=== PATIENT | male | born 1980 | race Caucasian/White ===

== ENCOUNTER 2021-09-12 12:47 | Inpatient (IN) ==
[2021-09-12] MEDS ORDERED: SODIUM CHLORIDE 0.9% 1,000 ML IV STA (13:19)
[2021-09-12 14:07] LABS: Basophils % 0.9 % (0.0-0.8); Eosinophils % 0.3 % (0.00-10.9); Hematocrit 29.4 VOL% (42.0-52.0); Hemoglobin 10.8 GM/DL (14.0-18.0); Immature Granulocytes % 1.2 %; Immature Granulocytes Absolute 0.04 #; Lymphocytes # 0.2 10*3/uL (1.4-4.0); Lymphocytes % 6.2 % (21.2-54.2); Mean Corpuscular HGB Conc 36.7 GM/DL (32-36); Mean Corpuscular Volume 91.6 FL (87-102); Monocytes # 0.5 10*3/uL (0.11-0.8); Monocytes % 14.9 % (1.7-12.7); Neutrophils % 76.5 % (38.7-73.9); Platelet Count 138 T/CUMM (130-400); Red Blood Count 3.21 MC/CUMM (3.8-5.5); Red Cell Distribution Width 16.4 % (9.3-17.3); White Blood Count 3.2 T/CUMM (4-12)
[2021-09-12 14:28] LABS: Albumin 3.7 G/DL (3.4-5.0); Bilirubin,Total 0.5 MG/DL (0.20-1.00); Calcium 9.9 MG/DL (8.5-10.1); Osmolality,Calculated 254.4 MOS/KG (273-304); Potassium 4.2 MMOL/L (3.5-5.1); Total Protein 7.3 G/DL (6.4-8.2)
[2021-09-12 14:32] LABS: Microcytosis Slight; Platelet Estimate Normal
[2021-09-12] MEDS ORDERED: hydrALAZINE 20 MG/1 ML VIAL IV PRN (15:31)
[2021-09-12] MEDS ORDERED: GLUCAGON 1 MG VIAL IM PRN (15:31)
[2021-09-12] MEDS ORDERED: ONDANSETRON 4 MG/2 ML VIAL IV PRN (15:31)
[2021-09-12] MEDS ORDERED: DEXTROSE 10% 250 ML BAG IV PRN (15:40)
[2021-09-12 16:49] LABS: Thyroid Stimulating Hormone 1.88 uIU/ml (0.358-3.74)
[2021-09-12] MEDS: SODIUM CHLORIDE 0.9% 1,000 ML IV SCH (16:56)
[2021-09-12] MEDS: ENOXAPARIN 40 MG/0.4 ML SYRINGE SUBCUT SCH (16:57)
[2021-09-12] MEDS: amLODIPine 5 MG TABLET PO SCH (20:53)
[2021-09-12] MEDS: ATORVASTATIN 20 MG TABLET PO SCH (20:53)
[2021-09-12] MEDS ORDERED: amLODIPine 5 MG TABLET PO SCH (21:00)
[2021-09-13] MEDS ORDERED: ZALEPLON 5 MG CAPSULE PO PRN (00:25)
[2021-09-13] MEDS: SODIUM CHLORIDE 0.9% 1,000 ML IV SCH ×3 (00:40→19:30)
[2021-09-13 04:37] LABS: Basophils % 0.5 % (0.0-0.8); Hematocrit 23.4 VOL% (42.0-52.0); Hemoglobin 8.4 GM/DL (14.0-18.0); Immature Granulocytes % 0.5 %; Immature Granulocytes Absolute 0.01 #; Lymphocytes # 0.3 10*3/uL (1.4-4.0); Lymphocytes % 12.8 % (21.2-54.2); Mean Corpuscular HGB Conc 35.9 GM/DL (32-36); Mean Corpuscular Volume 92.9 FL (87-102); Monocytes # 0.4 10*3/uL (0.11-0.8); Monocytes % 21.4 % (1.7-12.7); Neutrophils % 63.8 % (38.7-73.9); Platelet Count 110 T/CUMM (130-400); Red Blood Count 2.52 MC/CUMM (3.8-5.5); Red Cell Distribution Width 16.4 % (9.3-17.3)
[2021-09-13 05:06] LABS: Eosinophils 2 % (0-10); Lymphocytes 12 % (20-55); Total Cells Counted 100
[2021-09-13 05:07] LABS: Hypochromia Slight
[2021-09-13 05:08] LABS: Microcytosis Slight
[2021-09-13 05:25] LABS: Calcium 8.8 MG/DL (8.5-10.1); Osmolality,Calculated 265.5 MOS/KG (273-304); Potassium 3.8 MMOL/L (3.5-5.1)
[2021-09-13] MEDS ORDERED: MAGNESIUM SULF RIDER 2 GM/50 ML PREMIX IV ONE (07:44)
[2021-09-13] MEDS: METOPROLOL SUCCINATE XL 100 MG TABLET PO SCH (08:53)
[2021-09-13] MEDS: buPROPion SR 150 MG TABLET PO SCH (08:53)
[2021-09-13] MEDS: amLODIPine 5 MG TABLET PO SCH ×2 (08:53→20:45)
[2021-09-13] MEDS: PANTOPRAZOLE 40 MG VIAL IV SCH (08:57)
[2021-09-13 09:02] LABS: % Iron Saturation 26.5 % (18-50); Ferritin 1260.2 ng/mL (26-388)
[2021-09-13 10:07] LABS: Folate 11.47 NG/ML (5.38-24.0)
[2021-09-13] MEDS: ENOXAPARIN 40 MG/0.4 ML SYRINGE SUBCUT SCH (16:22)
[2021-09-13] MEDS: ATORVASTATIN 20 MG TABLET PO SCH (20:45)
[2021-09-14 05:09] LABS: Hematocrit 23.3 VOL% (42.0-52.0); Hemoglobin 8.4 GM/DL (14.0-18.0); Immature Granulocytes % 0.5 %; Immature Granulocytes Absolute 0.01 #; Lymphocytes # 0.2 10*3/uL (1.4-4.0); Mean Corpuscular HGB Conc 36.1 GM/DL (32-36); Mean Corpuscular Volume 92.8 FL (87-102); Mean Platelet Volume 9.3 FL (9.6-12.0); Monocytes # 0.3 10*3/uL (0.11-0.8); Neutrophils % 70.5 % (38.7-73.9); Platelet Count 128 T/CUMM (130-400); Red Blood Count 2.51 MC/CUMM (3.8-5.5); Red Cell Distribution Width 16.4 % (9.3-17.3)
[2021-09-14 05:18] LABS: INR 0.9; PT Patient Result 9.8 SECS (10.5-12.0)
[2021-09-14 05:35] LABS: Band Neutrophils 1 % (0-10); Eosinophils 5 % (0-10); Lymphocytes 10 % (20-55); Microcytosis Slight; Platelet Estimate Adequate; Total Cells Counted 100
[2021-09-14 05:50] LABS: Calcium 8.9 MG/DL (8.5-10.1); Potassium 3.8 MMOL/L (3.5-5.1)
[2021-09-14] MEDS ORDERED: MAGNESIUM SULF RIDER 4 GM/100 ML PREMIX IV ONE (07:25)
[2021-09-14] MEDS ORDERED: LACTATED RINGERS 1,000 ML IV SCH (08:00)
[2021-09-14] MEDS: METOPROLOL SUCCINATE XL 100 MG TABLET PO SCH (09:50)
[2021-09-14] MEDS: amLODIPine 5 MG TABLET PO SCH ×2 (09:51→20:10)
[2021-09-14] MEDS: LOSARTAN 25 MG TABLET PO SCH (09:51)
[2021-09-14] MEDS: buPROPion SR 150 MG TABLET PO SCH (09:56)
[2021-09-14] MEDS: PANTOPRAZOLE 40 MG VIAL IV SCH (11:03)
[2021-09-14] MEDS ORDERED: propofoL 200 MG/20 ML VIAL IV ONE ×2 (13:03→14:04)
[2021-09-14] MEDS ORDERED: LIDOCAINE 2% 5 ML VIAL ONE ×2 (13:03→14:04)
[2021-09-14] MEDS ORDERED: KETAMINE 500 MG/10 ML VIAL ONE (13:08)
[2021-09-14] MEDS ORDERED: MIDAZOLAM 2 MG/2 ML VIAL ONE ×2 (13:08→13:36)
[2021-09-14] MEDS ORDERED: GLYCOPYRROLATE 0.4 MG/2 ML VIAL ONE (14:04)
[2021-09-14] MEDS ORDERED: LABETALOL 20 MG/4 ML SYRINGE IV ONE ×2 (14:04→15:00)
[2021-09-14] MEDS: SODIUM CHLORIDE 0.9% 1,000 ML IV SCH ×2 (14:08→17:59)
[2021-09-14] MEDS ORDERED: HYDROmorphone 1 MG/1 ML SYRINGE ONE ×2 (14:09→14:19)
[2021-09-14] MEDS ORDERED: LABETALOL 100 MG/20 ML VIAL IV ONE (14:09)
[2021-09-14] MEDS: HYDROmorphone 1 MG/1 ML SYRINGE IV PRN ×4 (14:10→14:30)
[2021-09-14] MEDS ORDERED: PROMETHAZINE 25 MG/1 ML VIAL ONE (14:18)
[2021-09-14] MEDS ORDERED: MEPERIDINE 25 MG/1 ML VIAL IV PRN (14:25)
[2021-09-14] MEDS ORDERED: ONDANSETRON 4 MG/2 ML VIAL IV PRN (14:25)
[2021-09-14] MEDS ORDERED: diphenhydrAMINE 50 MG/1 ML VIAL IV PRN (14:25)
[2021-09-14] MEDS ORDERED: PROMETHAZINE INJ 25 MG in SODIUM CHLORIDE 0.9% 50 ML IV PRN (14:25)
[2021-09-14] MEDS ORDERED: hydrALAZINE 20 MG/1 ML VIAL IV ONE (15:00)
[2021-09-14] MEDS: ATORVASTATIN 20 MG TABLET PO SCH (20:10)
[2021-09-15] MEDS: SODIUM CHLORIDE 0.9% 1,000 ML IV SCH ×3 (01:30→20:37)
[2021-09-15 05:14] LABS: Basophils % 0.4 % (0.0-0.8); Eosinophils % 0.4 % (0.00-10.9); Hematocrit 21.1 VOL% (42.0-52.0); Hemoglobin 7.4 GM/DL (14.0-18.0); Immature Granulocytes % 0.4 %; Immature Granulocytes Absolute 0.01 #; Lymphocytes # 0.2 10*3/uL (1.4-4.0); Lymphocytes % 8.3 % (21.2-54.2); Mean Corpuscular HGB Conc 35.1 GM/DL (32-36); Mean Platelet Volume 9.5 FL (9.6-12.0); Monocytes # 0.5 10*3/uL (0.11-0.8); Monocytes % 20.9 % (1.7-12.7); Neutrophils % 69.6 % (38.7-73.9); Platelet Count 119 T/CUMM (130-400); Red Blood Count 2.22 MC/CUMM (3.8-5.5); Red Cell Distribution Width 16.9 % (9.3-17.3); White Blood Count 2.3 T/CUMM (4-12)
[2021-09-15 05:24] LABS: Calcium 8.4 MG/DL (8.5-10.1); Osmolality,Calculated 274.8 MOS/KG (273-304); Potassium 3.7 MMOL/L (3.5-5.1)
[2021-09-15 05:55] LABS: Band Neutrophils 2 % (0-10); Lymphocytes 15 % (20-55); Total Cells Counted 100
[2021-09-15 05:56] LABS: Anisocytosis 1+; Microcytosis 1+; Polychromasia Slight
[2021-09-15] MEDS ORDERED: MAGNESIUM SULF RIDER 4 GM/100 ML PREMIX IV ONE (07:21)
[2021-09-15] MEDS: PANTOPRAZOLE 40 MG VIAL IV SCH (09:16)
[2021-09-15] MEDS: LOSARTAN 25 MG TABLET PO SCH (09:17)
[2021-09-15] MEDS: amLODIPine 5 MG TABLET PO SCH ×2 (09:17→20:37)
[2021-09-15] MEDS: buPROPion SR 150 MG TABLET PO SCH (09:17)
[2021-09-15] MEDS: METOPROLOL SUCCINATE XL 100 MG TABLET PO SCH (09:17)
[2021-09-15 11:08] LABS: Hematocrit 22.3 VOL% (42.0-52.0); Hemoglobin 7.9 GM/DL (14.0-18.0)
[2021-09-15] MEDS ORDERED: BISACODYL 10 MG SUPP RECTAL ONE (11:34)
[2021-09-15] MEDS ORDERED: POLYETHYLENE GLYCOL POWDER 17 GM PACK PO PRN (11:37)
[2021-09-15] MEDS ORDERED: DEXTROSE 50% 25 GM/50 ML VIAL IV PRN (11:50)
[2021-09-15] MEDS: DOCUSATE SODIUM 100 MG CAPSULE PO SCH ×2 (13:28→20:36)
[2021-09-15] MEDS: ATORVASTATIN 20 MG TABLET PO SCH (20:36)
[2021-09-16] MEDS: SODIUM CHLORIDE 0.9% 1,000 ML IV SCH ×2 (00:19→06:09)
[2021-09-16 04:49] LABS: Basophils % 0.4 % (0.0-0.8); Eosinophils % 0.4 % (0.00-10.9); Hematocrit 21.7 VOL% (42.0-52.0); Hemoglobin 7.8 GM/DL (14.0-18.0); Immature Granulocytes % 0.4 %; Immature Granulocytes Absolute 0.01 #; Lymphocytes # 0.3 10*3/uL (1.4-4.0); Lymphocytes % 10.9 % (21.2-54.2); Mean Corpuscular HGB Conc 35.9 GM/DL (32-36); Mean Corpuscular Volume 94.3 FL (87-102); Mean Platelet Volume 9.4 FL (9.6-12.0); Monocytes # 0.5 10*3/uL (0.11-0.8); Monocytes % 19.6 % (1.7-12.7); Neutrophils % 68.3 % (38.7-73.9); Platelet Count 110 T/CUMM (130-400); Red Cell Distribution Width 16.5 % (9.3-17.3); White Blood Count 2.3 T/CUMM (4-12)
[2021-09-16 05:10] LABS: Calcium 8.7 MG/DL (8.5-10.1); Osmolality,Calculated 269.1 MOS/KG (273-304); Potassium 3.2 MMOL/L (3.5-5.1)
[2021-09-16 05:12] LABS: Band Neutrophils 2 % (0-10); Lymphocytes 12 % (20-55); Microcytosis 1+; Total Cells Counted 100
[2021-09-16 05:13] LABS: Platelet Estimate Adequate
[2021-09-16] MEDS ORDERED: MAGNESIUM SULF RIDER 4 GM/100 ML PREMIX IV ONE (07:44)
[2021-09-16] MEDS ORDERED: POTASSIUM CHLORIDE 20 MEQ TABLET PO ONE (07:47)
[2021-09-16] MEDS: PANTOPRAZOLE 40 MG VIAL IV SCH (09:39)
[2021-09-16] MEDS: buPROPion SR 150 MG TABLET PO SCH (09:40)
[2021-09-16] MEDS: LOSARTAN 25 MG TABLET PO SCH (09:40)
[2021-09-16] MEDS: amLODIPine 5 MG TABLET PO SCH (09:40)
[2021-09-16] MEDS: METOPROLOL SUCCINATE XL 100 MG TABLET PO SCH (09:40)
[2021-09-16] MEDS: DOCUSATE SODIUM 100 MG CAPSULE PO SCH (09:41)
[2021-09-16 11:42] VITALS: BP 169/89
[2021-09-16] MEDS ORDERED: BENZOCAINE 20% ORAL GEL 11.9 GM TUBE TOP SCH (13:00)
== END 2021-09-16 12:24 | disposition home health service (06) | DRG 146 ==
LOC: N.ED 12:47 → N.EDINP 15:13 → SUATTDRO 15:13 → N.TELES 15:39
PROVIDERS: ADMIT Internal Medicine; ATTEND Internal Medicine
PROC: EGDWPEG (ICD-10-PCS; 2021-09-14 08:35)